=== PATIENT | female | born 1965 | race Two or more races ===

== ENCOUNTER 2025-09-30 15:04 | Outpatient (CLI) | payer MEDICAID ==
[2025-09-30] MEDS ORDERED: ALBUTEROL SULF 2.5 MG/0.5ML(0.5%) NEB SOLN ONE (15:10)
== END 2025-09-30 17:00 | disposition home or self-care (01) ==
LOC: RT 15:04
PROVIDERS: ATTEND Internal Medicine Pulmonary Disease
DX: J44.89 Other specified chronic obstructive pulmonary disease (principal); R06.00 Dyspnea, unspecified
CPT/HCPCS: 94060; 94727; 94729